=== PATIENT | male | born 1960 | race Caucasian/White ===

== ENCOUNTER 2017-04-22 06:25 | Observation (INO) ==
[2017-04-22] MEDS ORDERED: ONDANSETRON 4 MG/2 ML VIAL IV PRN ×2 (06:43→09:34)
[2017-04-22] MEDS ORDERED: ASPIRIN 325 MG TABLET PO STA (06:43)
[2017-04-22] MEDS ORDERED: MORPHINE 2 MG/1 ML SYRINGE IV PRN ×2 (06:43→14:57)
--- NOTE | 2017-04-22 07:18 | XRay Report ---
2 view chest. Indication: Chest pain. Comparison: June 14, 2016. The heart and mediastinal contours are unremarkable. The pulmonary vasculature is normal. There is no consolidation, pneumothorax, or pleural effusion. The osseous structures are unremarkable. Impression: No abnormality is seen. PROCEDURE INTERPRETED AT [facility] DEPARTMENT OF RADIOLOGY Final Report Signed by: Dr. Katy Diop
[2017-04-22 07:23] LABS: Basophils # 0.1 10*3/uL (0.0-0.2); Basophils % 0.7 % (0.0-0.8); Eosinophils # 0.4 10*3/uL (0.0-0.87); Eosinophils % 5.1 % (0.00-10.9); Hematocrit 46.6 VOL% (42.0-52.0); Hemoglobin 16.2 GM/DL (14.0-18.0); Immature Granulocytes % 0.3 %; Immature Granulocytes Absolute 0.02 #; Lymphocytes # 1.2 10*3/uL (1.4-4.0); Mean Corpuscular HGB Conc 34.8 GM/DL (32-36); Mean Corpuscular Hemoglobin 30 PG (27-34); Mean Corpuscular Volume 85.2 FL (87-102); Mean Platelet Volume 10.8 FL (9.6-12.0); Monocytes # 0.5 10*3/uL (0.11-0.8); Monocytes % 7.6 % (1.7-12.7); Neutrophils # 4.9 10*3/uL (1.4-7.4); Neutrophils % 69.3 % (38.7-73.9); Platelet Count 170 T/CUMM (130-400); Red Blood Count 5.47 MC/CUMM (3.8-5.5); Red Cell Distribution Width 12.6 % (9.3-17.3); White Blood Count 7.1 T/CUMM (4-12)
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
[2017-04-22 07:48] LABS: Alanine Aminotransferase 26 U/L (16-61); Albumin 2.7 G/DL (3.4-5.0); Alkaline Phosphatase 64 U/L (45-117); Aspartate Amino Transferase 28 U/L (0-37); Bilirubin,Total < 0.39 MG/DL (0.2-1.0); Blood Urea Nitrogen 18 MG/DL (7-18); Calcium 8.7 MG/DL (8.5-10.1); Glucose 90 MG/DL (74-106); Osmolality,Calculated 280.4 MOS/KG (273-304); Potassium 4.6 MMOL/L (3.5-5.1); Sodium 140 MMOL/L (136-145); Total Protein 6.5 G/DL (6.4-8.3)
[2017-04-22] MEDS ORDERED: ENOXAPARIN 80 MG/0.8 ML SYRINGE SUBCUT STA (08:01)
[2017-04-22] MEDS ORDERED: ENOXAPARIN 80 MG/0.8 ML SYRINGE SUBCUT ONE (08:08)
[2017-04-22] MEDS ORDERED: ACETAMINOPHEN 325 MG TABLET PO PRN (09:34)
[2017-04-22] MEDS ORDERED: DOCUSATE SODIUM 100 MG CAPSULE PO SCH (09:34)
[2017-04-22] MEDS ORDERED: PANTOPRAZOLE 40 MG TABLET PO SCH (09:34)
[2017-04-22] MEDS ORDERED: SODIUM CHLORIDE 0.9% 1,000 ML IV SCH (09:34)
--- NOTE | 2017-04-22 09:41 | EKG Report ---
Stationary ECG Study [facility] ER Test Date: 04/22/2017 6:30:31 AM Pat Name: CECILIO CHOPRA Department: Room: 275 Gender: M Manager Corporate: : 1960 Requested by: Dean Porter Order Number: [id number] Reading MD: LUBNA HIGUERA Intervals [place] Rate: 68 P: 28 NH: 122 QRS: 80 QRSD: 102 T: 49 QT: 391 QTc: 408 Interpretive Statements SINUS RHYTHM INCOMPLETE RIGHT BUNDLE BRANCH BLOCK Electronically Signed On 04-22-17 10:53:47 CDT by LUBNA HIGUERA [email or web address]
--- NOTE | 2017-04-22 09:48 | EKG Report ---
Stationary ECG Study [facility] Test Date: 04/22/2017 9:48:26 AM Pat Name: CECILIO CHOPRA Department: Room: 275 Gender: M [employer]: : 1960 Requested by: Dean Porter Order Number: [id number] Reading MD: MATTHEW PIERCE Intervals [place] Rate: 62 P: 54 VT: 124 QRS: 89 QRSD: 98 T: 67 QT: 398 QTc: 404 Interpretive Statements SINUS RHYTHM Electronically Signed On 04-22-17 15:52:32 CDT by MATTHEW PIERCE [email or web address]
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
[2017-04-22] MEDS ORDERED: DIAZEPAM 5 MG TABLET PO ONE (11:47)
[2017-04-22] MEDS ORDERED: diphenhydrAMINE CAP 25 MG CAPSULE PO ONE (11:47)
[2017-04-22 12:04] LABS: Risk Ratio 3.84; VLDL CHOLESTEROL 31.8 MG/DL
[2017-04-22 12:28] LABS: Free T4 (Free Thyroxine) 0.84 NG/DL (0.76-1.46); Thyroid Stimulating Hormone 3.98 uIU/ml (0.358-3.74)
--- NOTE | 2017-04-22 12:47 | EKG Report ---
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
[2017-04-22] MEDS ORDERED: HEPARIN/NACL 0.9% 2 UNITS/ML 1,000 ML IV ONE (13:09)
[2017-04-22] MEDS ORDERED: LIDOCAINE 1% 20 ML VIAL ONE (13:09)
--- NOTE | 2017-04-22 13:54 | History and Physical Update ---
Sedation H&P Update - History and Physical H&P was reviewed, the patient examined and there: are no changes in the patients condition since last H&P was completed. - Dictation Physical: refer to H&P completed by admitting physician - Physical Exam Mental Status: alert and oriented Heart: regular rate and rhythm Lung: clear to auscultation Abdomen: within normal limits Vitals: within normal limits - Sedation Plan for Sedation: moderate Patient Consent: Procedure disscussed with patient and patinet has consented., Risks and benefits were discussed with patient,including infection,, bleeding, injury to surrounding structures, seizure, temporary nerve, Patient understands and accepts potential risks/benefits and agrees to, proceed. ASA Class: III Airway Assessment: Class II: Soft palate, uvula, fauces visible
[2017-04-22] MEDS ORDERED: MIDAZOLAM 2 MG/2 ML VIAL ONE (13:58)
[2017-04-22] MEDS ORDERED: fentaNYL 100 MCG/2 ML VIAL ONE (13:58)
[2017-04-22] MEDS ORDERED: ACETAMINOPHEN/CODEINE 300-30 MG TABLET PO PRN (14:57)
--- NOTE | 2017-04-22 15:10 | Cardiology Operative Report ---
Date of Procedure:: 04/22/17 Pre-op diagnosis: Chest pain, abnormal ECG, shortness of breath, fatigue Post-op diagnosis: other (Angiographically normal coronary arteries) Procedure: 1. Selective left and right coronary angiography. 2. Left heart catheterization with left ventriculogram. 3. Right iliac angiography to rule out vascular complications. 4. Application of Mynx hemostasis device to the right femoral arteriotomy site. Impression: 1. Angiographically normal coronary arteries. 2. Co-dominant coronary arteries. 3. Ejection fraction 60 %. 4. Angiographically normal right iliac artery without evidence of vascular complications. Plan: 1. Noncardiac workup if symptoms. 2. Consider Holter monitor to evaluate PVCs. Equipment: Diagnostic 6 Slovak JL4, JR4, pigtail catheters, Mynx hemostasis device. Hemodynamics: Aortic pressure 103/61 mmHg, left ventricular pressure 110/2 mmHg, LVEDP 8 mmHg Sedation: Versed 1 mg, fentanyl 25 mcg Procedure: After informed consent was obtained the patient was prepped and draped in sterile fashion. The right groin was infiltrated with 1% lidocaine and the right femoral artery was accessed via modified Seldinger technique using a micropuncture needle and a 6 Slovak femoral arterial sheath was placed. All catheter exchanges were performed over a guidewire under fluoroscopic guidance. Diagnostic 6 Slovak JL4 and JR4 catheters were advanced to the left and right coronary arteries respectively and multiple cineangiograms were performed in varying degrees of obliquity and angulation. Thereafter a pigtail catheter was advanced into the left ventricle where hemodynamics were obtained followed by left ventriculogram. At conclusion of the procedure right iliac angiography was performed to rule out vascular complications. A mynx hemostasis device was unsuccessfully applied to the right femoral arteriotomy site. Findings: 1. The left main artery is angiographically normal. 2. The left anterior descending artery extends to the apex and wraps around. It is angiographically normal. 3. There is an intermediate ramus branch that is small to moderate caliber, free of significant disease. 4. The circumflex artery is a codominant vessel supplying the posterior descending artery. It is free of significant disease. 5. The right coronary artery is a codominant vessel supplying the posterior lateral branch. It is free of significant disease. 6. Ejection fraction is 60 % with normal anterior, inferior and apical wall motion. 7. No significant mitral regurgitation. 8. No significant aortic stenosis. 9. The right iliac artery is angiographically normal without evidence of vascular complications. Contrast use: Omnipaque 77 cc Fluoro time: 1.33 minutes Complications: none Specimens removed: none Devices implanted: Mynx Anesthesia: moderate conscious sedation Surgeon / Physician: Loni Reynoso Senior Architect/Design Manager: none (Omar Garvey) Estimated blood loss: minimal Specimens: none sent Condition: stable Disposition: floor
--- NOTE | 2017-04-22 17:12 | Event Note ---
Patient was seen post cath. Right groin is soft, free of hematoma or bruit. Dressing is dry and intact. Patient and would like for him to be discharged home this afternoon. After appropriate bedrest time, patient may be eligible for discharge. Patient is admitted to Dr. Denson she will see this evening. If he is agreeable he may discharge patient. I will give Mr. Burt follow-up appoint with Dr. Mccracken to be evaluated in approximately 2 weeks. Patient was having a significant amount of APCs. Depending on the burden of APCs, this may account for his overwhelming fatigue. He has been encouraged to wear a 24-hour Holter monitor and I have arranged for this to be placed prior to discharge. Dr. Mccracken will read Holter monitor.
[2017-04-22 17:47] LABS: Apearance,Urine CLEAR (Clear); Bilirubin,Urine Negative (Negative); Blood, Urine Negative (Negative); Glucose,Urine (UA) Negative (Negative); Ketones,Urine Negative (Negative); Nitrite,Urine Negative (Negative); Protein,Urine Negative; Urine Color Straw (Yellow); Urine Specific Gravity 1.047 (1.001-1.035); Urine Urobilinogen < 2.0 EU/DL (0.2-1.0); WBC,Urine <1 /HPF (0-6)
[2017-04-22 18:34] VITALS: BP 113/79
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
--- NOTE | 2017-04-22 19:25 | Discharge Summary ---
Diagnosis - Discharge Diagnosis (1) Chest pain unknown etiology Status: Acute (2) Dyspnea on exertion Status: Acute (3) Fatigue Status: Acute Discharge Plan - Discharge Data Disposition: Disch To Home/Self Care Condition at Discharge: Stable Discharge Diet: advance to your usual diet Activity: resume usual activities as tolerated Hygiene: no restrictions Weight Bearing at Discharge: full weight bearing Driving: no restrictions Contact your physician if you experience:: fever over 101, Shortness of breath - Discharge Medications No Action Aspirin 81 mg PO DAILY - Follow Up or Referral Follow Up: Matthew Cruz DO [Physician] - 1 Week (I will have patient return to office in a.m. for Holter monitor and 24 hour fat-free fasting lipids.) - Forms/Instructions Instructions: Left Heart Catheterization (DC) Exam - Constitutional Vitals: Period Temp Pulse Resp BP Sys/Waggoner Pulse Ox Last 24 Hr 97.2 F-97.9 F 54-73 16-20 102-129/63-80 96-99 General appearance: normal weight - Head Head exam: Present: normal inspection - Eye Pupils: Present: NENO - ENT ENT exam: Present: normal exam - Neck Neck exam: Present: normal inspection - Respiratory Respiratory exam: Present: clear to auscultation bilaterally - Cardiovascular Cardiovascular exam: Present: regular rate and rhythm - GI/Abdominal GI/Abdominal exam: Present: normal bowel sounds, soft - Extremities Exam Extremities exam: Present: normal inspection - Back Exam Back exam: Present: normal inspection - Neurological Exam Neurological exam: Present: alert, oriented X3 - Psychiatric Psychiatric exam: Present: normal affect - Skin Skin exam: Present: normal color Discharge Results Procedures and tests throughout hospitalization: Pending Orders 04/22/17 11:59 CL heart Routine 04/22/17 19:03 Ferritin Stat Free T4 (Free Thyroxine) Stat Iron Stat Magnesium Stat Thyroid Stimulating Hormone Stat 04/22/17 19:05 Testosterone Total & Free Stat 04/22/17 19:09 Cortisol,Random Stat 04/22/17 19:10 Sedimentation Rate-Westergren Stat 04/22/17 19:11 C-Reactive Protein Inflamm Stat 04/22/17 19:13 PSA [Prostate Specific Antigen Diag] Stat 04/23/17 04:00 BMP w/ Mg [Basic Metabolic Panel w/Mg] IN AM Basic Metabolic Panel IN AM CBC [Comp Blood Count Auto Diff] IN AM Labs on day of discharge: Labs from last 24 hours 04/22/17 04/22/17 04/22/17 17:30 13:15 11:44 WBC RBC Hgb Hct MCV MCH MCHC RDW Plt Count MPV Neut % (Auto) Lymph % (Auto) [place] % (Auto) Eos % (Auto) Baso % (Auto) Neut # (Auto) Lymph # (Auto) [place] # (Auto) Eos # (Auto) Baso # (Auto) Immature Gran % Nucleated RBC % Immature Gran # Nucleated RBCs # Immature Plt Fraction Sodium Potassium Chloride Carbon Dioxide Anion Gap BUN Creatinine GFR Calculation BUN/Creatinine Ratio Glucose Calculated Osmolality Calcium Total Bilirubin AST ALT Alkaline Phosphatase Troponin I 0.018 Total Protein Albumin Globulin Albumin/Globulin Ratio Triglycerides Cholesterol LDL Cholesterol VLDL Cholesterol HDL Cholesterol Heart Disease Risk Ratio Free T4 0.84 TSH 3rd Generation 3.980 H Urine Color Straw Urine Appearance Clear Urine pH 5.0 Ur Specific [place] 1.047 H Urine Protein Negative Urine Glucose (UA) Negative Urine Ketones Negative Urine Blood Negative Urine Nitrate Negative Urine Bilirubin Negative Urine Urobilinogen < 2.0 H Urine Leukocytes Negative Urine WBC <1 Ur Culture Indicated? Not indicated 04/22/17 04/22/17 04/22/17 11:44 09:37 07:11 WBC RBC Hgb Hct MCV MCH MCHC RDW Plt Count MPV Neut % (Auto) Lymph % (Auto) [place] % (Auto) Eos % (Auto) Baso % (Auto) Neut # (Auto) Lymph # (Auto) [place] # (Auto) Eos # (Auto) Baso # (Auto) Immature Gran % Nucleated RBC % Immature Gran # Nucleated RBCs # Immature Plt Fraction Sodium Potassium Chloride Carbon Dioxide Anion Gap BUN Creatinine GFR Calculation BUN/Creatinine Ratio Glucose Calculated Osmolality Calcium Total Bilirubin AST ALT Alkaline Phosphatase Troponin I < 0.015 < 0.015 Total Protein Albumin Globulin Albumin/Globulin Ratio Triglycerides 159 H Cholesterol 261 H LDL Cholesterol 171.0 VLDL Cholesterol 31.8 HDL Cholesterol 68 H Heart Disease Risk Ratio 3.84 Free T4 TSH 3rd Generation Urine Color Urine Appearance Urine pH Ur Specific [place] Urine Protein Urine Glucose (UA) Urine Ketones Urine Blood Urine Nitrate Urine Bilirubin Urine Urobilinogen Urine Leukocytes Urine WBC Ur Culture Indicated? 04/22/17 04/22/17 07:11 07:11 WBC 7.1 RBC 5.47 Hgb 16.2 Hct 46.6 MCV 85.2 L MCH 30 MCHC 34.8 RDW 12.6 Plt Count 170 MPV 10.8 Neut % (Auto) 69.3 Lymph % (Auto) 17.0 L [place] % (Auto) 7.6 Eos % (Auto) 5.1 Baso % (Auto) 0.7 Neut # (Auto) 4.9 Lymph # (Auto) 1.2 L [place] # (Auto) 0.5 Eos # (Auto) 0.4 Baso # (Auto) 0.1 Immature Gran % 0.3 Nucleated RBC % 0.0 Immature Gran # 0.02 Nucleated RBCs # 0.00 Immature Plt Fraction 0.0 Sodium 140 Potassium 4.6 Chloride 107 Carbon Dioxide 27 Anion Gap 10.6 BUN 18 Creatinine 0.90 GFR Calculation 104 BUN/Creatinine Ratio 20.00 Glucose 90 Calculated Osmolality 280.4 Calcium 8.7 Total Bilirubin < 0.39 AST 28 ALT 26 Alkaline Phosphatase 64 Troponin I Total Protein 6.5 Albumin 2.7 L Globulin 3.8 H Albumin/Globulin Ratio 0.7 L Triglycerides Cholesterol LDL Cholesterol VLDL Cholesterol HDL Cholesterol Heart Disease Risk Ratio Free T4 TSH 3rd Generation Urine Color Urine Appearance Urine pH Ur Specific [place] Urine Protein Urine Glucose (UA) Urine Ketones Urine Blood Urine Nitrate Urine Bilirubin Urine Urobilinogen Urine Leukocytes Urine WBC Ur Culture Indicated? DS: Provider Date of admission: 04/22/17 08:03 Mr. Burt is a 56-year-old gentleman with a family history of coronary artery disease who complains primarily extreme overwhelming fatigue that has limited him for the last several months. He is escalating to the point that he could not mow his grass last week he was awakened this morning approximately 2:00 with some discomfort in his chest he is also had to take numerous pulse breath. Patient states that that she has complaints with significant this a.m. He became very concerned and took an aspirin and initially laid back down. His symptoms persisted and after discussing with his he presented to the emergency room. His cardiac biomarkers are negative he has some subtle lateral ST depression. The patient is previously been very active but has a significant change in his functional capacity. In view of overall history elected to admit further evaluation therapy DISCHARGE SUMMARY -patient was admitted hospital lab and x-ray studies obtained. He was seen in consultation by Dr. Gutierrez local inspector and clipper. After reviewing his family history and symptoms Dr. Weller felt that patient would best be evaluated by cardiac catheterization. His cardiac isoenzymes and EKGs remain normal. Lab studies were normal except for slightly abnormal thyroid function studies and significantly elevated lipids. After appropriate consent was obtained the patient was taken to the cardiac dairy lab technician and a selective left and right coronary angiography was carried out. The studies were normal. Patient tolerated procedure well with no complications and no signs of bleeding. Patient states that his fatigue has been significant and in view of this I have elected to draw additional lab studies prior to discharge. He has been okayed for discharge by cardiology. Cardiology had requested a Holter monitor will be placed but this was not done so I will plan to do it to the office in a.m. We will plan to draw lab studies and arrange for Holter placement in a.m. Will arrange follow-up to review labs and Holter monitor. Will discharge to home care and have patient call or return to the emergency room condition worsening problems develop. His lipids were significantly elevated I will plan to repeat these at 24 hour fat-free fasting lipids to the office. Primary care physician: . No PCP Attending physician on admission: Matthew Cruz DO Consults: 04/22/17 09:34 Consult to Case Mgmt/Social Srvs [CONS] Routine Reason for Case Mgmt/Social Srvs: Discharge Planning Consult to Physician [CONS] Routine Comment: chest pain Consulting Provider: Lexis Weller Consult to Specialist Group: Cardiology Person Notified: Cori Date Notified: 04/22/17 Time Notified: 09:55 Discharging clinician: Matthew Cruz DO
[2017-04-22 20:08] LABS: Ferritin 51.7 ng/ml (26-388); Free T4 (Free Thyroxine) 0.75 NG/DL (0.76-1.46); Magnesium 2.1 MG/DL (1.8-2.4); Thyroid Stimulating Hormone 2.37 uIU/ml (0.358-3.74)
== END 2017-04-22 19:45 | disposition home or self-care (01) ==
LOC: N.EDINP 06:25 → N.ED 06:25 → N.TELES 09:18
PROVIDERS: ADMIT Family Medicine; ATTEND Family Medicine
PROC: CLCCHCL (ICD-10-PCS; 2017-04-22 14:15)